=== PATIENT | female | born 1950 | race Caucasian/White ===

== ENCOUNTER 2019-08-17 06:36 | Day surgery (SDC) | payer OTHER ==
[~2019-08-17 06:36] MED LIST: AMARYL; SINGULAIR10 MG
== END 2019-08-17 10:45 | disposition home or self-care (01) ==
LOC: AMB-ENDOS 06:36 → ADM 12:30 → AMB-ENDOS 12:30
PROVIDERS: ATTEND Surgery
DX: D12.5 Benign neoplasm of sigmoid colon (principal)

== ENCOUNTER 2021-06-08 11:08 | Outpatient (CLI) | payer OTHER | END 2021-06-08 11:12 | disposition home or self-care (01) | LOC: SONOGRAMA 11:08 | PROVIDERS: ATTEND Pathology Anatomic Pathology & Clinical Pathology | DX: E04.2 Nontoxic multinodular goiter (principal) ==